=== PATIENT | female | born 1965 | race Caucasian/White ===

== ENCOUNTER 2018-01-08 10:38 | Emergency (ER) | payer OTHER ==
[~2018-01-08] VITALS: Ht 157.4 cm; Wt 68.0 kg
[~2018-01-08 10:38] MED LIST: ADDERALL XR10 MG PO; BACTRIM DS 8001 TA1 PO; BENADRYL50 MG PO; CIPROFLOXACIN500 MG PO; COMBIVENT1 ARO IH; CYMBALTA60 MG PO; DAYPRO600 M1 PO; FLEXERIL10 MG PO; GEODON80 MG PO; IMITREX100 MG PO; KEFLEX500 MG PO; LEXAPRO20 MG; LIDEX0.05% T; MORPHINE NAS; NAPROSYN500 MG PO; NORCO 325 MG-51 TAB PO; PERCOCET 325 MG1 TA2 PO; PREDNICOT20 MG PO; PREDNISONE20 M1 PO; PRILOSEC20 M1 PO; PYRIDIUM200 MG PO; TOPAMAX100 MG; VALIUM10 MG PO; VICODIN 500 MG-1 TAB PO; WELLBUTRIN SR150 MG; ZITHROMAX250 MG PO
[2018-01-08 11:16] LABS: BASO # 0.1 10*3/uL (0.0-0.1); BASO % 0.6 % (0.0-1.0); EOS # 0.1 10*3/uL (0.0-0.4); HEMATOCRIT 44.5 % (37.0-47.0); HEMOGLOBIN 14.7 g/dl (12.0-16.0); LYMPH # 3.6 10*3/uL (1.3-4.4); LYMPH % 34.2 % (27.0-41.0); MEAN CELL VOLUME 86.6 fl (81.0-99.0); MEAN CORPUSCULAR HGB 28.6 pg (27.0-31.0); MEAN PLATELET VOLUME 9.7 fl (9.6-12.3); MONO # 0.8 10*3/uL (0.1-1.0); MONO % 7.2 % (3.0-9.0); NEUT # 5.9 10*3/uL (2.3-7.9); NEUT % 56.8 % (47.0-73.0); PLATELET COUNT AUTOMATED 267 10*3/uL (130-400); RED BLOOD COUNT 5.14 10*6/uL (4.10-5.10); RED CELL DISTRI WIDTH 14.2 % (0-14.5); WHITE BLOOD COUNT 10.4 10*3/uL (4.8-10.8)
[2018-01-08 11:25] LABS: BILIRUBIN NEGATIVE (NEGATIVE); BLOOD 1+ (NEGATIVE); CLARITY SL CLOUDY (CLEAR); COLOR YELLOW (YELLOW); GLUCOSE NEGATIVE (NEGATIVE); KETONE NEGATIVE (NEGATIVE); LEUKO ESTERASE NEGATIVE (NEGATIVE); NITRITE NEGATIVE (NEGATIVE); SPECIFIC GRAVITY 1.015 (1.005-1.030); UROBILINOGEN 0.2 E.U./dl (0.2-1.0)
[2018-01-08 11:32] LABS: BACTERIA 3+; EPITHELIAL CELLS 20-25
[2018-01-08 11:36] LABS: ALBUMIN 3.8 gm/dl (3.1-4.5); ALKALINE PHOSPHATASE 59 U/L (45-117); BUN 14 mg/dl (7-24); CHLORIDE 109 mmol/L (98-107); CREATININE 0.94 mg/dL (0.55-1.02); LIPASE 154 U/L (73-393); POTASSIUM 3.8 mmol/L (3.5-5.1); SGOT/AST 14 IU/L (3-35); SGPT/ALT 17 U/L (12-78); SODIUM 141 mmol/L (136-145); TOTAL PROTEIN 7.8 gm/dL (6.4-8.2)
[2018-01-08 11:37] LABS: TROPONIN I < 0.015 ng/ml (<0.045)
[2018-01-08] MEDS ORDERED: PROTONIX40 MG PO (13:57)
== END 2018-01-08 13:44 | disposition home or self-care (01) ==
LOC: ED 10:38
PROVIDERS: Nurse Practitioner Family
DX: K21.9 Gastro-esophageal reflux disease without esophagitis (principal); R10.13 Epigastric pain; R31.9 Hematuria, unspecified; F12.10 Cannabis abuse, uncomplicated; F17.200 Nicotine dependence, unspecified, uncomplicated; Z90.49 Acquired absence of other specified parts of digestive tract; Z98.51 Tubal ligation status; Z98.890 Other specified postprocedural states; Z79.899 Other long term (current) drug therapy; Z87.442 Personal history of urinary calculi

== ENCOUNTER → 2018-03-01 | Day surgery (SDC) | payer OTHER ==
[~2018-03-01] VITALS: Ht 157.4 cm; Wt 68.0 kg
[~2018-03-01] MED LIST changes: +PROAIR HFA8.5 GM INH; +PROTONIX40 MG PO; +[UNRECOGNIZED DRUG - OTHER] NAS
--- NOTE | ~2018-03-01 | PROC NOTE ---
[place], [place] PROCEDURE NOTE NAME: JENNYFER ODOM [facility] #: [id number] UNIT #: [id number] ROOM: DOCTOR: JOSE SMITH MD BIRTHDATE: [birth year] DOS: 03/01/2018 PROCEDURE: 1. Esophagogastroduodenoscopy and biopsy. 2. Colonoscopy. INDICATIONS: Nausea, abdominal pain and change in bowel habits. An informed consent was obtained from the patient after indication of procedures, alternatives, and potential complications were explained to her. PROCEDURE MEDICATION: Sedation was administered by Anesthesiology Department. Scope used was Olympus pediatric colonoscope variable stiffness GIF-180, depth of insertion with the upper endoscopy was to descending duodenum; with the colonoscopy was to the cecum, which was identified by the usual landmarks, appendiceal orifice, ileocecal valve and triangular fold, in addition to transillumination in the right lower quadrant. FINDINGS: After adequate sedation, the patient was placed in left lateral decubitus position. Upper endoscopy was performed first. Scope was introduced under direct visualization through the upper esophageal sphincter into the esophagus. Esophageal mucosa appeared normal, no ulcerations or strictures. Lower esophageal sphincter was identified at 38 cm from the incisors. The stomach was then intubated. Gastric mucosa inspected. Moderate amounts of food residue were noted, which is highly suggestive of gastroparesis in addition to underlying gastritis. A RCO test was performed from the gastric antrum and body. On retroflexed views in the fundus, there was no evidence of hiatal hernia. The pylorus was intubated easily. The duodenal bulb and descending duodenum were within normal range. The scope was then withdrawn after the stomach was decompressed. We then proceeded with the colonoscopy. Rectal examination showed a diminished sphincter tone and no external hemorrhoids. Scope was introduced into the rectum, then advanced to the cecum with slight difficulty due to looping left colon. The prep was adequate. The colon mucosa appeared normal with no evidence of polyps, diverticula or ulcerations. Retroflexed views in the rectum showed grade 1 internal hemorrhoids. The scope was then withdrawn after the rectum was decompressed. The patient tolerated the procedures well. IMPRESSION: 1. Food residue in the stomach, rule out gastroparesis. 2. Gastritis, ROC test performed. 3. Normal colon mucosa, no polyps seen. 4. Internal hemorrhoids. PLAN: We will schedule a smart pill study as an outpatient. We will review the ROC test results and treat the patient accordingly. Repeat screening colonoscopy was advised in 10 years. Office followup will be scheduled in 2-3 weeks. [place], [place] PROCEDURE NOTE NAME: JENNYFER ODOM UNIT #: [id number] ROOM: DOCTOR: JOSE SMITH MD BIRTHDATE: [birth year] JOSE SMITH MD CM:PROCNOTE:PROCEDURE NOTE [id number] SHADI SMITH MD
[2018-03-01 08:45] VITALS: BP 100/68
[2018-03-01 10:35] VITALS: BP 105/66
[2018-03-01 10:50] VITALS: BP 112/72
== END | disposition home or self-care (01) ==
LOC: SDC 02-26 14:00
DX: K29.70 Gastritis, unspecified, without bleeding (principal); K64.8 Other hemorrhoids; K21.9 Gastro-esophageal reflux disease without esophagitis; K50.90 Crohn's disease, unspecified, without complications; F31.9 Bipolar disorder, unspecified; G43.909 Migraine, unspecified, not intractable, without status migrainosus; F41.9 Anxiety disorder, unspecified; F17.210 Nicotine dependence, cigarettes, uncomplicated; Z98.49 Cataract extraction status, unspecified eye; Z82.49 Family history of ischemic heart disease and other diseases of the circulatory system; Z83.3 Family history of diabetes mellitus; Z82.3 Family history of stroke; Z79.899 Other long term (current) drug therapy; Z98.890 Other specified postprocedural states

== ENCOUNTER → 2018-03-21 | Outpatient (CLI) | payer OTHER | END | disposition home or self-care (01) | LOC: MAMMO 02-20 07:40 | DX: Z12.31 Encounter for screening mammogram for malignant neoplasm of breast (principal) ==

== ENCOUNTER 2019-02-05 10:14 | Emergency (ER) | payer OTHER ==
[~2019-02-05] VITALS: Ht 157.4 cm; Wt 69.9 kg
--- NOTE | ~2019-02-05 | EKG ---
[place], [place] ELECTROCARDIOGRAM REPORT NAME: JENNYFER ODOM UNIT #: [id number] ROOM: DOCTOR: EPIPHANY DRAFT REPORT BIRTHDATE: [birth year] [facility] Test Date: 2019-02-05 Test Time: 13:40:45 Pat Name: JENNYFER ODOM Department: Room: [facility] Gender: F Business Process Coordinator: : 1965 Requested By: IGLESIA SCHWARTZ Order Number: [id number] Reading MD: Vanessa Sanders MD Measurements Intervals [place] Rate: 60 P: 63 OR: 169 QRS: 3 QRSD: 88 T: 18 QT: 424 QTc: 424 Interpretive Statements Sinus rhythm Probable anteroseptal infarct, old Electronically Signed On 02-05-2019 15:35:45 PDT by Vanessa Sanders MD CM:EKGRPT:ELECTROCARDIOGRAM REPORT [id number] IGLESIA PINZON DRAFT REPORT IGLESIA SCHWARTZ DO
--- NOTE | ~2019-02-05 | EKG ---
[place], [place] ELECTROCARDIOGRAM REPORT NAME: JENNYFER ODOM UNIT #: [id number] ROOM: DOCTOR: EPIPHANY DRAFT REPORT BIRTHDATE: [birth year] [facility] Test Date: 2019-02-05 Test Time: 10:16:17 Pat Name: JENNYFER ODOM Department: Room: Gender: F Global Account Executive: : 1965 Requested By: IGLESIA SCHWARTZ Order Number: [id number] Reading MD: Vanessa Sanders MD Measurements Intervals [place] Rate: 68 P: 72 IA: 165 QRS: 21 QRSD: 89 T: 44 QT: 403 QTc: 429 Interpretive Statements Sinus rhythm No previous ECG available for comparison Electronically Signed On 02-06-2019 15:41:13 PDT by Vanessa Sanders MD CM:EKGRPT:ELECTROCARDIOGRAM REPORT [id number] IGLESIA PINZON DRAFT REPORT IGLESIA SCHWARTZ DO
[2019-02-05 10:53] LABS: BASO % 0.3 % (0.0-1.0); EOS # 0.2 10*3/uL (0.0-0.4); EOS % 1.9 % (1.0-4.0); HEMATOCRIT 43.2 % (37.0-47.0); HEMOGLOBIN 14.2 g/dl (12.0-16.0); LYMPH # 2.9 10*3/uL (1.3-4.4); LYMPH % 32.4 % (27.0-41.0); MEAN CELL VOLUME 87.4 fl (81.0-99.0); MEAN CORPUSCULAR HGB 28.7 pg (27.0-31.0); MEAN CORPUSCULAR HGB CONC 32.9 g/dl (33.0-37.0); MEAN PLATELET VOLUME 10.4 fl (9.6-12.3); MONO # 0.6 10*3/uL (0.1-1.0); NEUT # 5.1 10*3/uL (2.3-7.9); NEUT % 58.2 % (47.0-73.0); PLATELET COUNT AUTOMATED 257 10*3/uL (130-400); RED BLOOD COUNT 4.94 10*6/uL (4.10-5.10); WHITE BLOOD COUNT 8.8 10*3/uL (4.8-10.8)
[2019-02-05 11:08] LABS: LIPASE 475 U/L (73-393)
[2019-02-05 11:15] LABS: ACT PARTIAL THROMBO TIME 26.5 SECONDS (20.0-32.1); INTERNATIONAL NORM RATIO 0.9 (2.0-3.5)
[2019-02-05 11:17] LABS: ALBUMIN 3.6 gm/dl (3.1-4.5); ALKALINE PHOSPHATASE 58 U/L (45-117); BUN 14 mg/dl (7-24); CHLORIDE 110 mmol/L (98-107); CREATININE 0.76 mg/dL (0.55-1.02); POTASSIUM 3.9 mmol/L (3.5-5.1); SGOT/AST 10 IU/L (3-35); SGPT/ALT 19 U/L (12-78); SODIUM 141 mmol/L (136-145); TOTAL PROTEIN 7.2 gm/dL (6.4-8.2)
[2019-02-05 11:18] LABS: TROPONIN I < 0.015 ng/ml (<0.045)
[2019-02-05 12:41] LABS: BILIRUBIN NEGATIVE (NEGATIVE); BLOOD TRACE-INTACT (NEGATIVE); CLARITY CLEAR (CLEAR); COLOR YELLOW (YELLOW); GLUCOSE NEGATIVE (NEGATIVE); KETONE NEGATIVE (NEGATIVE); LEUKO ESTERASE NEGATIVE (NEGATIVE); NITRITE NEGATIVE (NEGATIVE); SPECIFIC GRAVITY <= 1.005 (1.005-1.030); UROBILINOGEN 0.2 E.U./dl (0.2-1.0)
[2019-02-05 12:48] LABS: RBC 0-2 rbc/hpf (0-2); WBC 0-2 wbc/hpf (0-5)
[2019-02-05] MEDS ORDERED: ZOFRAN4 MG PO (13:52)
== END 2019-02-05 14:03 | disposition left against medical advice (07) ==
LOC: ED 10:14
PROVIDERS: Emergency Medicine
DX: R11.2 Nausea with vomiting, unspecified (principal); R07.9 Chest pain, unspecified; R10.10 Upper abdominal pain, unspecified; M54.5 Low back pain; R51 Headache; F17.200 Nicotine dependence, unspecified, uncomplicated; K21.9 Gastro-esophageal reflux disease without esophagitis; Z79.899 Other long term (current) drug therapy; Z87.442 Personal history of urinary calculi; Z90.49 Acquired absence of other specified parts of digestive tract

== ENCOUNTER 2020-05-10 14:39 | Emergency (ER) | payer OTHER ==
[~2020-05-10] VITALS: Ht 157.4 cm; Wt 68.9 kg
[~2020-05-10 14:39] MED LIST changes: +ZOFRAN4 MG PO
[2020-05-10] MEDS ORDERED: CEPHALEXIN500 M1 PO ×2 (15:27→15:28)
[2020-05-10] MEDS ORDERED: NORCO 5-325 TA1 EACH PO ×2 (15:28→15:30)
== END 2020-05-10 16:18 | disposition home or self-care (01) ==
LOC: ED 14:39
DX: T25.211A Burn of second degree of right ankle, initial encounter (principal); Z23 Encounter for immunization; Z91.041 Radiographic dye allergy status; Z79.899 Other long term (current) drug therapy; Z72.0 Tobacco use; X08.8XXA Exposure to other specified smoke, fire and flames, initial encounter; Y93.89 Activity, other specified; Y92.89 Other specified places as the place of occurrence of the external cause; Y99.8 Other external cause status

== ENCOUNTER → 2020-06-21 | Outpatient (CLI) | payer OTHER ==
[~2020-06-21] MED LIST changes: +CEPHALEXIN500 M1 PO; +NORCO 5-325 TA1 EACH PO
== END | disposition home or self-care (01) ==
LOC: CARD 09:14
PROVIDERS: ATTEND Nurse Practitioner Family
DX: Z51.81 Encounter for therapeutic drug level monitoring (principal); Z79.899 Other long term (current) drug therapy

== ENCOUNTER → 2020-07-07 | Outpatient (CLI) | payer OTHER | END | disposition home or self-care (01) | LOC: CARD 08:51 | PROVIDERS: ATTEND Internal Medicine Cardiovascular Disease | DX: R94.31 Abnormal electrocardiogram [ECG] [EKG] (principal); R07.9 Chest pain, unspecified ==

== ENCOUNTER → 2020-08-20 | Outpatient (CLI) | payer OTHER | END | disposition home or self-care (01) | LOC: COVID19 13:50 | PROVIDERS: ATTEND Internal Medicine | DX: Z20.828 Contact with and (suspected) exposure to other viral communicable diseases (principal) ==

== ENCOUNTER 2020-10-27 21:14 | Emergency (ER) | payer MEDICARE, OTHER ==
[~2020-10-27] VITALS: Wt 86.2 kg
[2020-10-27 22:37] LABS: BILIRUBIN Negative (Negative); BLOOD 2+ (Negative); CLARITY Cloudy (Clear); COLOR Yellow (Yellow); GLUCOSE Negative (Negative); KETONE Negative (Negative); LEUKO ESTERASE Trace (Negative); NITRITE Negative (Negative); PH 5.5 (4.5-8.0); SPECIFIC GRAVITY 1.025 (1.001-1.030); UROBILINOGEN 0.2 E.U./dl (0.0-1.0)
[2020-10-27 22:47] LABS: BACTERIA 1+
[2020-10-27 22:48] LABS: EPITHELIAL CELLS 21-30
== END 2020-10-27 23:26 | disposition home or self-care (01) ==
LOC: ED 21:14
PROVIDERS: Internal Medicine
DX: N13.2 Hydronephrosis with renal and ureteral calculous obstruction (principal); N28.1 Cyst of kidney, acquired; N13.4 Hydroureter; F17.200 Nicotine dependence, unspecified, uncomplicated; F12.10 Cannabis abuse, uncomplicated; Z98.890 Other specified postprocedural states; Z98.51 Tubal ligation status; Z79.899 Other long term (current) drug therapy; Z91.041 Radiographic dye allergy status

== ENCOUNTER → 2021-01-11 | Outpatient (CLI) | payer MEDICARE, OTHER | END | disposition home or self-care (01) | LOC: RAD 10:01 | PROVIDERS: ATTEND Internal Medicine | DX: M25.761 Osteophyte, right knee (principal); R60.0 Localized edema ==

== ENCOUNTER → 2021-02-03 | Day surgery (SDC) | payer MEDICARE, OTHER ==
[2021-01-31 15:22] LABS: BASO % 0.5 % (0.0-1.0); EOS # 0.2 10*3/uL (0.0-0.4); EOS % 1.8 % (1.0-4.0); HEMATOCRIT 42.6 % (37.0-47.0); LYMPH # 2.8 10*3/uL (1.3-4.4); LYMPH % 32.5 % (27.0-41.0); MEAN CELL VOLUME 85.9 fl (81.0-99.0); MEAN CORPUSCULAR HGB 27.4 pg (27.0-31.0); MEAN CORPUSCULAR HGB CONC 31.9 g/dl (33.0-37.0); MEAN PLATELET VOLUME 9.5 fl (9.6-12.3); MONO # 0.7 10*3/uL (0.1-1.0); MONO % 7.4 % (3.0-9.0); NEUT % 57.3 % (47.0-73.0); PLATELET COUNT AUTOMATED 305 10*3/uL (130-400); RED BLOOD COUNT 4.96 10*6/uL (4.10-5.10); WHITE BLOOD COUNT 8.8 10*3/uL (4.8-10.8)
[2021-01-31 15:50] LABS: BUN 13 mg/dl (7-24); CHLORIDE 106 mmol/L (98-107); CREATININE 0.81 mg/dL (0.55-1.02); POTASSIUM 4.1 mmol/L (3.5-5.1); SODIUM 139 mmol/L (136-145)
[2021-02-03] VITALS (7 sets, daily range): BP systolic 91–133; BP diastolic 23–75
[~2021-02-03] VITALS: Ht 157.4 cm; Wt 82.6 kg
[~2021-02-03] MED LIST changes: +REMERON15 M2 PO; +SYMB160 INH
[2021-02-04 15:07] LABS: ACID FAST SPEC PROCESSING Tissue Grinding (.)
== END | disposition home or self-care (01) ==
LOC: SDC 01-31 13:45
PROVIDERS: ATTEND Orthopaedic Surgery
DX: L72.0 Epidermal cyst (principal); F41.9 Anxiety disorder, unspecified; F31.9 Bipolar disorder, unspecified; F17.210 Nicotine dependence, cigarettes, uncomplicated; Z90.710 Acquired absence of both cervix and uterus; Z90.49 Acquired absence of other specified parts of digestive tract; Z98.890 Other specified postprocedural states; Z91.041 Radiographic dye allergy status; Z20.828 Contact with and (suspected) exposure to other viral communicable diseases; Z79.899 Other long term (current) drug therapy

== ENCOUNTER → 2021-10-06 | Outpatient (CLI) | payer MEDICARE, OTHER ==
[~2021-10-06] MED LIST changes: +FLOMAX0.4 MG PO
[2021-10-06 13:14] LABS: BASO % 0.4 % (0.0-1.0); EOS # 0.2 10*3/uL (0.0-0.4); EOS % 2.4 % (1.0-4.0); LYMPH # 3.9 10*3/uL (1.3-4.4); LYMPH % 40.8 % (27.0-41.0); MEAN CELL VOLUME 85.1 fl (81.0-99.0); MEAN CORPUSCULAR HGB 27.2 pg (27.0-31.0); MEAN PLATELET VOLUME 9.8 fl (9.6-12.3); MONO # 0.7 10*3/uL (0.1-1.0); MONO % 7.8 % (3.0-9.0); NEUT # 4.6 10*3/uL (2.3-7.9); NEUT % 48.3 % (47.0-73.0); PLATELET COUNT AUTOMATED 321 10*3/uL (130-400); RED BLOOD COUNT 5.29 10*6/uL (4.10-5.10); RED CELL DISTRI WIDTH 14.2 % (0-14.5); WHITE BLOOD COUNT 9.5 10*3/uL (4.8-10.8)
[2021-10-06 13:31] LABS: ALBUMIN 3.3 gm/dl (3.1-4.5); ALKALINE PHOSPHATASE 83 U/L (45-117); BUN 17 mg/dl (7-24); CHLORIDE 106 mmol/L (98-107); CHOLESTEROL 202 mg/dL (<200); CREATININE 0.77 mg/dL (0.55-1.02); LDL CHOLESTEROL 114 mg/dL (9-159); SGOT/AST 41 IU/L (3-35); SGPT/ALT 33 U/L (12-78); SODIUM 140 mmol/L (136-145); TOTAL PROTEIN 7.3 gm/dL (6.4-8.2); TRIGLYCERIDES 193 mg/dl (<150)
== END ==
LOC: LAB 12:34
PROVIDERS: ATTEND Nurse Practitioner
DX: Z51.81 Encounter for therapeutic drug level monitoring (principal); Z79.899 Other long term (current) drug therapy

== ENCOUNTER 2021-10-08 22:45 | Emergency (ER) | payer MEDICARE, OTHER ==
[~2021-10-08] VITALS: Ht 167.6 cm; Wt 95.3 kg
[~2021-10-08 22:45] MED LIST changes: -FLOMAX0.4 MG PO
[2021-10-08 23:14] LABS: BILIRUBIN Negative (Negative); BLOOD 1+ (Negative); CLARITY Clear (Clear); COLOR Yellow (Yellow); GLUCOSE Negative (Negative); KETONE Negative (Negative); LEUKO ESTERASE Trace (Negative); NITRITE Negative (Negative); PH 5.5 (4.5-8.0); SPECIFIC GRAVITY 1.025 (1.001-1.030); UROBILINOGEN 0.2 E.U./dl (0.0-1.0)
[2021-10-08 23:26] LABS: BACTERIA 1+
[2021-10-09] MEDS ORDERED: ZOFRAN4 MG PO (01:12)
[2021-10-09] MEDS ORDERED: FLOMAX0.4 MG PO (01:12)
== END 2021-10-09 01:36 | disposition home or self-care (01) ==
LOC: ED 22:45
PROVIDERS: Internal Medicine
DX: N13.2 Hydronephrosis with renal and ureteral calculous obstruction (principal); N13.4 Hydroureter; Z91.041 Radiographic dye allergy status; Z79.899 Other long term (current) drug therapy; Z87.891 Personal history of nicotine dependence

== ENCOUNTER 2021-11-19 22:21 | Emergency (ER) | payer MEDICARE, OTHER ==
[~2021-11-19 22:21] MED LIST changes: +FLOMAX0.4 MG PO
[2021-11-19 23:07] LABS: BASO # 0.1 10*3/uL (0.0-0.1); BASO % 0.4 % (0.0-1.0); EOS # 0.2 10*3/uL (0.0-0.4); EOS % 1.4 % (1.0-4.0); HEMATOCRIT 44.2 % (37.0-47.0); LYMPH # 3.3 10*3/uL (1.3-4.4); LYMPH % 28.4 % (27.0-41.0); MEAN CELL VOLUME 84.2 fl (81.0-99.0); MEAN CORPUSCULAR HGB 27.6 pg (27.0-31.0); MEAN CORPUSCULAR HGB CONC 32.8 g/dl (33.0-37.0); MEAN PLATELET VOLUME 9.9 fl (9.6-12.3); NEUT % 60.5 % (47.0-73.0); PLATELET COUNT AUTOMATED 287 10*3/uL (130-400); RED BLOOD COUNT 5.25 10*6/uL (4.10-5.10); RED CELL DISTRI WIDTH 14.6 % (0-14.5); WHITE BLOOD COUNT 11.6 10*3/uL (4.8-10.8)
[2021-11-19 23:24] LABS: ALKALINE PHOSPHATASE 91 U/L (45-117); BUN 16 mg/dl (7-24); CHLORIDE 104 mmol/L (98-107); CREATININE 0.97 mg/dL (0.55-1.02); POTASSIUM 3.4 mmol/L (3.5-5.1); SGOT/AST 22 IU/L (3-35); SGPT/ALT 22 U/L (12-78); SODIUM 137 mmol/L (136-145); TOTAL PROTEIN 7.7 gm/dL (6.4-8.2)
[2021-11-20 00:03] LABS: BILIRUBIN Negative (Negative); BLOOD Trace-Lysed (Negative); CLARITY Clear (Clear); COLOR Yellow (Yellow); GLUCOSE Negative (Negative); KETONE 1+ (Negative); LEUKO ESTERASE Negative (Negative); NITRITE Negative (Negative); PH 5.5 (4.5-8.0); UROBILINOGEN 0.2 E.U./dl (0.0-1.0)
[2021-11-20 00:21] LABS: BACTERIA TRACE; WBC 0-2 wbc/hpf (0-5)
== END 2021-11-20 06:53 | disposition short-term general hospital (02) ==
LOC: ED 22:21
PROVIDERS: Emergency Medicine
DX: N13.2 Hydronephrosis with renal and ureteral calculous obstruction (principal); K21.9 Gastro-esophageal reflux disease without esophagitis; Z87.442 Personal history of urinary calculi; Z91.041 Radiographic dye allergy status; Z98.890 Other specified postprocedural states; Z79.899 Other long term (current) drug therapy; Z87.891 Personal history of nicotine dependence; Z98.51 Tubal ligation status; Z90.49 Acquired absence of other specified parts of digestive tract

== ENCOUNTER 2022-10-27 17:16 | Emergency (ER) | payer MEDICARE, OTHER ==
[~2022-10-27] VITALS: Ht 157.4 cm; Wt 81.6 kg
[2022-10-27 18:26] LABS: BASO % 0.3 % (0.0-1.0); EOS # 0.2 10*3/uL (0.0-0.4); EOS % 1.1 % (1.0-4.0); HEMATOCRIT 44.2 % (37.0-47.0); LYMPH # 3.5 10*3/uL (1.3-4.4); LYMPH % 26.1 % (27.0-41.0); MEAN CELL VOLUME 85.5 fl (81.0-99.0); MEAN CORPUSCULAR HGB 28.4 pg (27.0-31.0); MEAN CORPUSCULAR HGB CONC 33.3 g/dl (33.0-37.0); MEAN PLATELET VOLUME 9.3 fl (9.6-12.3); MONO % 7.7 % (3.0-9.0); NEUT # 8.5 10*3/uL (2.3-7.9); NEUT % 64.4 % (47.0-73.0); PLATELET COUNT AUTOMATED 342 10*3/uL (130-400); RED BLOOD COUNT 5.17 10*6/uL (4.10-5.10); RED CELL DISTRI WIDTH 13.4 % (0-14.5); WHITE BLOOD COUNT 13.2 10*3/uL (4.8-10.8)
[2022-10-27 18:44] LABS: ACT PARTIAL THROMBO TIME 29.3 SECONDS (20.0-32.1)
[2022-10-27 18:47] LABS: ALKALINE PHOSPHATASE 81 U/L (46-116); BUN 11 mg/dl (9-23); CHLORIDE 105 mmol/L (98-107); LIPASE 45 U/L (12-53); POTASSIUM 3.6 mmol/L (3.4-5.1); SGPT/ALT 37 U/L (10-49); TOTAL PROTEIN 7.2 gm/dL (6.0-8.0)
[2022-10-27 18:47] LABS: BILIRUBIN Negative (Negative); BLOOD 1+ (Negative); CLARITY Clear (Clear); COLOR Yellow (Yellow); GLUCOSE Negative (Negative); KETONE Negative (Negative); LEUKO ESTERASE 3+ (Negative); NITRITE Positive (Negative); PH 6.5 (4.5-8.0); SPECIFIC GRAVITY <= 1.005 (1.001-1.030); UROBILINOGEN 0.2 E.U./dl (0.0-1.0)
[2022-10-27 19:03] LABS: BACTERIA 3+; WBC 41-50 wbc/hpf (0-5)
== END 2022-10-28 01:25 | disposition short-term general hospital (02) ==
LOC: ED 17:16
PROVIDERS: Emergency Medicine
DX: N39.0 Urinary tract infection, site not specified (principal); N20.0 Calculus of kidney; J18.9 Pneumonia, unspecified organism; A41.9 Sepsis, unspecified organism; Z91.041 Radiographic dye allergy status; Z90.49 Acquired absence of other specified parts of digestive tract; Z98.51 Tubal ligation status; Z98.890 Other specified postprocedural states; F12.10 Cannabis abuse, uncomplicated

== ENCOUNTER → 2023-01-01 | Outpatient (CLI) | payer MEDICARE, OTHER ==
[2023-01-01 08:53] LABS: BASO % 0.5 % (0.0-1.0); EOS # 0.1 10*3/uL (0.0-0.4); EOS % 1.6 % (1.0-4.0); HEMATOCRIT 47.1 % (37.0-47.0); LYMPH # 2.9 10*3/uL (1.3-4.4); LYMPH % 36.2 % (27.0-41.0); MEAN CELL VOLUME 85.6 fl (81.0-99.0); MEAN CORPUSCULAR HGB 27.8 pg (27.0-31.0); MEAN CORPUSCULAR HGB CONC 32.5 g/dl (33.0-37.0); MEAN PLATELET VOLUME 10.3 fl (9.6-12.3); MONO # 0.7 10*3/uL (0.1-1.0); NEUT # 4.3 10*3/uL (2.3-7.9); NEUT % 53.5 % (47.0-73.0); PLATELET COUNT AUTOMATED 288 10*3/uL (130-400); RED CELL DISTRI WIDTH 14.2 % (0-14.5); WHITE BLOOD COUNT 8.1 10*3/uL (4.8-10.8)
[2023-01-01 10:36] LABS: ALKALINE PHOSPHATASE 86 U/L (46-116); BUN 14 mg/dl (9-23); CHLORIDE 104 mmol/L (98-107); SGPT/ALT 16 U/L (10-49); THYROID STIM HORMONE (HS) 1.816 uIU/ml (0.550-4.780); TOTAL PROTEIN 7.3 gm/dL (6.0-8.0)
[2023-01-01 12:03] LABS: CHOLESTEROL 207 mg/dL (<200); LDL CHOLESTEROL 87 mg/dL (9-159); TRIGLYCERIDES 318 mg/dl (<150)
== END | disposition home or self-care (01) ==
LOC: LAB 08:08
PROVIDERS: ATTEND Nurse Practitioner
DX: Z51.81 Encounter for therapeutic drug level monitoring (principal); Z79.899 Other long term (current) drug therapy; Z79.891 Long term (current) use of opiate analgesic

== ENCOUNTER → 2023-03-13 | Outpatient (CLI) | payer OTHER ==
[2023-03-13 11:45] LABS: CHOLESTEROL 198 mg/dL (<200); LDL CHOLESTEROL 115 mg/dL (9-159); TRIGLYCERIDES 116 mg/dl (<150)
== END | disposition home or self-care (01) ==
LOC: LAB 10:46
PROVIDERS: Family Medicine; ATTEND Nurse Practitioner Family
DX: R79.89 Other specified abnormal findings of blood chemistry (principal); R53.83 Other fatigue; R10.9 Unspecified abdominal pain

== ENCOUNTER → 2024-03-24 | Outpatient (CLI) | payer OTHER ==
[2024-03-24 08:32] LABS: BASO % 0.6 % (0.0-1.0); EOS # 0.2 10*3/uL (0.0-0.4); HEMATOCRIT 46.5 % (37.0-47.0); LYMPH # 2.4 10*3/uL (1.3-4.4); LYMPH % 33.7 % (27.0-41.0); MEAN CELL VOLUME 90.1 fl (81.0-99.0); MEAN CORPUSCULAR HGB 28.7 pg (27.0-31.0); MEAN CORPUSCULAR HGB CONC 31.8 g/dl (33.0-37.0); MEAN PLATELET VOLUME 9.8 fl (9.6-12.3); MONO # 0.7 10*3/uL (0.1-1.0); MONO % 9.9 % (3.0-9.0); NEUT # 3.8 10*3/uL (2.3-7.9); NEUT % 52.4 % (47.0-73.0); PLATELET COUNT AUTOMATED 284 10*3/uL (130-400); RED BLOOD COUNT 5.16 10*6/uL (4.10-5.10); RED CELL DISTRI WIDTH 13.2 % (0-14.5); WHITE BLOOD COUNT 7.2 10*3/uL (4.8-10.8)
[2024-03-24 10:11] LABS: VITAMIN D, 25-HYDROXY 15.1 ng/mL (30-100)
[2024-03-24 10:16] LABS: ALKALINE PHOSPHATASE 77 U/L (46-116); BUN 15 mg/dl (9-23); CHLORIDE 108 mmol/L (98-107); CHOLESTEROL 202 mg/dL (<200); LDL CHOLESTEROL 94 mg/dL (9-159); POTASSIUM 4.1 mmol/L (3.4-5.1); SGPT/ALT 28 U/L (5-49); TOTAL PROTEIN 7.2 gm/dL (6.0-8.0); TRIGLYCERIDES 252 mg/dl (<150)
== END ==
LOC: LAB 07:34
PROVIDERS: ATTEND Internal Medicine
DX: E78.2 Mixed hyperlipidemia (principal); E55.9 Vitamin D deficiency, unspecified; E56.9 Vitamin deficiency, unspecified; Z00.00 Encounter for general adult medical examination without abnormal findings

== ENCOUNTER → 2024-04-29 | Outpatient (CLI) | payer OTHER | END | disposition home or self-care (01) | LOC: MAMMO 14:30 | PROVIDERS: ATTEND Nurse Practitioner Women's Health | DX: Z12.31 Encounter for screening mammogram for malignant neoplasm of breast (principal) ==

== ENCOUNTER 2024-07-31 01:52 | Emergency (ER) | payer OTHER ==
[~2024-07-31] VITALS: Ht 157.4 cm; Wt 83.9 kg
[2024-07-31 02:43] LABS: BILIRUBIN Negative (Negative); BLOOD 2+ (Negative); CLARITY Clear (Clear); COLOR Yellow (Yellow); GLUCOSE Negative (Negative); KETONE Negative (Negative); LEUKO ESTERASE 3+ (Negative); NITRITE Negative (Negative); PH 6.5 (4.5-8.0); UROBILINOGEN 0.2 E.U./dl (0.0-1.0)
[2024-07-31 03:01] LABS: WBC 41-50 wbc/hpf (0-5)
[2024-07-31 03:02] LABS: BACTERIA TRACE
[2024-07-31] MEDS ORDERED: Ketorolac Tromethamine 30 MG/ML VIAL IV ONE (03:15)
[2024-07-31] MEDS ORDERED: Ondansetron Hydrochloride 4 MG/2 ML VIAL IV ONE (03:15)
[2024-07-31] MEDS ORDERED: HYDROmorphONE Hydrochloride 1 MG/ML SYR IV ONE (05:20)
== END 2024-07-31 06:08 | disposition home or self-care (01) ==
LOC: ED 01:52
PROVIDERS: Internal Medicine
DX: N13.2 Hydronephrosis with renal and ureteral calculous obstruction (principal); R11.2 Nausea with vomiting, unspecified; F41.9 Anxiety disorder, unspecified; F31.9 Bipolar disorder, unspecified; F12.10 Cannabis abuse, uncomplicated; Z72.0 Tobacco use; Z91.041 Radiographic dye allergy status; Z90.49 Acquired absence of other specified parts of digestive tract; Z98.890 Other specified postprocedural states